=== PATIENT | female | born 1950 | race Caucasian/White ===

== ENCOUNTER 2017-03-17 13:44 | Emergency (ER) | payer MEDICARE ==
[2010-05-11 10:10] VITALS: BMI 36.4
[2017-03-17 15:24] LABS: BASOPHILS 0.3 % (0-2); EOSINOPHILS 1.8 % (0-7); HEMATOCRIT 39.3 % (36.0-48.0); HEMOGLOBIN 13.4 g/dL (12-16); IMMATURE GRANULOCYTES 0.1 % (0-5); LYMPHOCYTES 24.7 % (15-50); MCH 30.8 pg (26.0-34.0); MCHC 34.1 g/dL (31.0-37.0); MCV 90.3 fL (80.0-100.0); MEAN PLATELET VOLUME 11.5 fL (7.4-10.4); MONOCYTES 8.1 % (2-11); PLATELET COUNT 180 10x3/uL (130-400); RBC 4.35 10x6/uL (4.00-5.40); RDW 13.5 % (11.5-14.5); WBC 7.4 10x3/uL (4.8-10.8)
[2017-03-17 15:51] LABS: ALBUMIN 3.6 g/dL (3.4-5.0); ALKALINE PHOSPHATASE 73 U/L (46-116); ALT (SGPT) 37 U/L (10-68); CALC OSMOLALITY 287 mosm/kg (275-300); CALCIUM 9.5 mg/dL (8.5-10.1); CARBON DIOXIDE 25.9 mmol/L (21.0-32.0); CHLORIDE - SERUM 105 mmol/L (98-107); CREATININE - SERUM 1.1 mg/dL (0.6-1.3); GLUCOSE 109 mg/dL (74-106); POTASSIUM - SERUM 3.6 mmol/L (3.5-5.1); PROTEIN - SERUM 7.8 g/dL (6.4-8.2); SODIUM 142 mmol/L (136-145); UREA NITROGEN 24 mg/dL (7-18); eGFR NON AFRICAN AMERICAN 52 mL/min (90-120)
[2017-03-17 15:58] LABS: CHOL - HDL RATIO 5.5 ratio (2.3-4.1); CHOLESTEROL, TOTAL 231 mg/dL (0-200); CKMB 0.8 U/L (0.0-3.6); CREATINE KINASE 67 UL (21-215); HDL CHOLESTEROL 42 mg/dL (32-96); LDL CHOLESTEROL 164 mg/dL (0-100); LDL-HDL RATIO 3.9 ratio (1.5-3.5); MAGNESIUM - SERUM 2.2 mg/dL (1.8-2.4); PRO BNP 161 pg/mL (0-125); TRIGLYCERIDE 126 mg/dL (30-200)
[2017-03-17 15:59] LABS: TROPONIN-I < 0.017 ng/mL (0.000-0.060)
[2017-05-04 09:21] VITALS: BMI 44.7
== END 2017-03-17 16:33 | disposition home or self-care (01) ==
LOC: D.ER 13:44
PROVIDERS: Emergency Medicine
DX: M79.602 Pain in left arm (principal); I44.7 Left bundle-branch block, unspecified

== ENCOUNTER 2017-05-04 09:01 | Outpatient (CLI) | payer MEDICARE ==
[~2017-05-04] VITALS: Ht 170.2 cm; Wt 129.5 kg
--- NOTE | ~2017-05-04 | HEMODYNAMI ---
PATIENT:MINI SHUKLA MEDICAL RECORD: [id number] : 50 LOCATION:DCastroCAT ADMISSION DATE: 05/04/17 Generatedon:05/04/201711:04 Patient name: MINI SHUKLA Patient #: [id number] SSN: D OB: 1950 Date of study: 05/04/2017 Page: Of Hemodynamic Procedure Report Patient Data Patient Demographics Procedure consent was obtained First Name: MINI Gender: Female Last Name: VAZQUEZ : 1950 Middle Initial: D Age: 67 year(s) Patient #: [id number] Race: Unknown Additional ID: [id number] Contact details Address: [address] State: [place] City: [place] Zip code: [address] Admission Admission Data Admission Date: 05/04/2017 Admission Time: 9:01 Procedure Procedure Types Cath Procedure Diagnostic Procedure LHC LHC w/Coronaries FFR/IVUS Intra-Coronary IVUS Initial PCI Procedure Coronary Stent Coronary Stent Initial Miscellaneous Procedures Moderate Sedation up to 30 minutes Procedure Description Procedure Date Procedure Date: 05/04/2017 Procedure Start Time: 10:34 Procedure End Time: 11:03 Procedure Staff Name Function Leonidas Tamez MD Performing Physician Quyen Ansari RT Monitor Esther Rivera RT Scrub Darren Pollock RN Nurse Bunny Deluna RN Geothermal System Installer Procedure Data Cath Procedure Fluoroscopy Diagnostic fluoroscopy Total fluoroscopy Time: 6.3 time: 6.3 min min Diagnostic fluoroscopy Total fluoroscopy dose: dose: 1084 mGy 1084 mGy Contrast Material Contrast Material Type Amount (ml) Isovue 300 114 Entry Location Entry Primary Successful Side Size Upsize Upsize Entry Closure Walker ccessful Closure Location (Fr) 1 (Fr) 2 (Fr) Remarks Device Remarks Radial Right 6 Fr Mechanical artery Short Compression Estimated blood loss: 10 ml Diagnostic catheters Device Type Used For End Catheter Placement DIAGNOSTIC Holliday 110cm 5 LV Angiography Fr catheter ([id number]) DIAGNOSTIC Holliday 110cm 5 Left Coronary Fr catheter ([id number]) Angiography DIAGNOSTIC Holliday 110cm 5 Right Coronary Fr catheter ([id number]) Angiography Procedure Complications No complications Procedure Medications Medication Administration Route Dosage 0.9% NaCl I.V. 100 ml/hr Oxygen NC 2 l/min Heparin Flush Bag added to field 2 bags (1000units/500ml NS) Lidocaine 2% added to field 20 Radial Cocktail added to field 1 syringe (Verapomil 2mg/Nitro 400mcg/Heparin 1500units) Versed I.V. 1 mg Fentanyl I.V. 50 mcg Versed I.V. 1 mg Fentanyl I.V. 50 mcg Radial Cocktail added to field 1 syringe (Verapomil 2mg/Nitro 400mcg/Heparin 1500units) Heparin Bolus I.V. 4000 units Integrilin (Bolus I.V. 11.3 ml 2mg/ml) Integrilin (Bolus wasted 8.7 ml 2mg/ml) Versed I.V. 1 mg Plavix P.O. 600 mg Hemodynamics Rest Heart Rate: 63 (bpm) Snapshots Pre Cath Intra NCS Post Cath Vital Signs Time Heart Resp SPO2 etCO2 NIBP (mmHg) Rhythm Pain Sedation Rate (ipm) (%) (mmHg) Status Level (bpm) 10:30:18 61 27 100 38.6 141/76(114) NSR 0 (11) 10(A) , No pain 10:35:09 63 17 98 37.8 133/73(107) NSR 0 (11) 10(A) , No pain 10:39:58 58 16 94 40.8 121/61(107) NSR 0 (11) 10(A) , No pain 10:44:47 62 14 97 40.8 123/59(94) NSR 0 (11) 10(A) , No pain 10:49:31 69 16 94 40 114/57(83) NSR 0 (11) 10(A) , No pain 10:54:18 66 14 96 37.8 127/62(93) NSR 0 (11) 10(A) , No pain 10:59:09 61 16 96 40.8 119/52(93) NSR 0 (11) 10(A) , No pain Medications Time Medication Route Dose Verified Delivered Reason Note s Effectiveness by by 10:28:36 0.9% NaCl I.V. 100 Darren Darren Per physician ml/hr Lorigan Lorigan RN RN 10:28:48 Oxygen NC 2 l/min Darren Darren Per physician Phill Pollock RN RN 10:28:59 Heparin Flush added 2 bags Darren Darren used for Bag to Phill Pollock procedure (1000units/500ml field RN RN NS) 10:29:12 Lidocaine 2% added 20ml Darren Darren for local to vial Phill Pollock anesthetic field RN RN 10:29:31 Radial Cocktail added 1 Darren Darren for (Verapomil to syringe Phill Pollock vasodilation 2mg/Nitro field RN RN 400mcg/Heparin 1500units) 10:31:49 Versed I.V. 1 mg Darren Darren for sedation Phill Pollock RN RN 10:32:00 Fentanyl I.V. 50 mcg Darren Darren for sedation Phill Pollock RN RN 10:37:32 Versed I.V. 1 mg Darren Darren for sedation Phill Pollock RN RN 10:37:41 Fentanyl I.V. 50 mcg Darren Darren for sedation Phill Pollock RN RN 10:43:20 Radial Cocktail added 1 Darren Leonidas for (Verapomil to syringe Phill Tamez MD vasodilation 2mg/Nitro field RN 400mcg/Heparin 1500units) 10:56:33 Heparin Bolus I.V. 4000 Darren Darren for units Phill Pollock anticoagulation RN RN 10:56:51 Integrilin I.V. 11.3 ml Darren Darren for (Bolus 2mg/ml) Phill Pollock antiplatelet RN RN therapy 10:57:09 Integrilin wasted 8.7 ml Darren Darren to sharp's (Bolus 2mg/ml) Phill Pollock RN RN 10:59:31 Versed I.V. 1 mg Darren Darren for sedation Phill Pollock RN RN 11:02:04 Plavix P.O. 600 mg Darren Darren for Phill Pollock antiplatelet RN RN therapy Procedure Log Time Note 10:07:55 Bunny Deluna RN sent for patient. Start room use. 10:07:56 Time tracking: Regular hours 10:07:59 Plan of Care:Hemodynamics will remain stable., Cardiac rhythm will remain stable., Comfort level will be maintained., Respiratory function will remain adequate., Patient/ family verbilizes understanding of procedure., Procedure tolerated without complication., Recovers from procedure without complications.. 10:19:21 Patient received from Pre/Post Procedure Room to CCL 1 Alert and oriented. Tansferred to table in Supine position. 10:19:22 Warm blankets applied, and graciela hugger turned on for patient comfort. 10:19:22 Correct patient and procedure confirmed by team. 10:19:23 Signed procedure consent form obtained from patient. 10:19:24 ECG and BP/O2 sat monitors applied to patient. 10:19:25 Full Disclosure recording started 10:28:36 0.9% NaCl 100 ml/hr I.V. was administered by Darren Pollock RN; Per physician; 10:28:48 Oxygen 2 l/min NC was administered by Darren Pollock RN; Per physician; 10:28:59 Heparin Flush Bag (1000units/500ml NS) 2 bags added to field was administered by Darren Pollock RN; used for procedure; 10:29:12 Lidocaine 2% 20ml vial added to field was administered by Darren Pollock RN; for local anesthetic; 10:29:17 Vital chart was started 10:29:31 Radial Cocktail (Verapomil 2mg/Nitro 400mcg/Heparin 1500units) 1 syringe added to field was administered by Darren Pollock RN; for vasodilation; 10:30:14 Rhythm: sinus rhythm 10:30:33 H&P Date Dictated: 04/12/2017 Within 30 days and on chart., H&P Addendum completed by physician on day of procedure. (MUST COMPLETE FOR ALL OUTPATIENTS). 10:30:35 Pre-procedure instructions explained to patient. 10:30:35 Pre-op teaching completed and patient verbalized understanding. 10:30:37 Family in patients room. 10:30:39 Patient NPO since Midnight. 10:30:46 Is patient on blood thinner?No 10:30:48 Patient diabetic? No. 10:30:51 Previous problem with sedation/anesthesia? No ? 10:30:52 Snore? Yes 10:30:54 Sleep apnea? No 10:30:55 Deviated septum? No 10:30:56 Opens mouth fully? Yes 10:30:56 Sticks out tongue? Yes 10:30:58 Airway obstruction? No ? 10:31:01 Dentures? Yes OUT 10:31:05 Pre procedure: right dorsailis pedis pulse 2+ Normal; easily identifiable; not easily obliterated 10:31:07 Modified Dk's test Ulnar < 7 seconds 10:31:09 Patient pain scale 0/10 ?. 10:31:14 IV patent on arrival in left hand with 0.9% NaCl at KVO. 10:31:19 Lab results completed and on chart. 10:31:22 Right Radial & Right Groin area was prepped with chlora-prep and draped in sterile fashion 10::23 Alarms reviewed by R. N. 10:31: Sharps counted by scrub and verified by R.N. 10:31:25 Final Timeout: patient, procedure, and site verified with staff and physician. All members of the team are in agreement. 10:31:27 Right Radial site verified by team. 10:31:30 Physical assessment completed. ASA score P 2 - A patient with mild systemic disease as per Leonidas Tamez MD. 10:31:33 Sedation plan: IV Moderate Sedation Medication:Versed, Fentanyl 10:31:49 Versed 1 mg I.V. was administered by Darren Pollock RN; for sedation; 10:32:00 Fentanyl 50 mcg I.V. was administered by Darren Pollock RN; for sedation; 10:33:14 Use device set Radial Dx 10:33:15 ACIST Syringe (82579) opened to sterile field. 10:33:15 Medline Cath Pack ([id number]) opened to sterile field. 10:33:16 Bag Decanter (2002S) opened to sterile field. 10:33:16 SHEATH 6FR Slender ([id number]) opened to sterile field. 10:33:16 DIAGNOSTIC WIRE .035 260cm J wire (360738) opened to sterile field. 10:33:17 ACIST Hand Control (48866) opened to sterile field. 10:33:18 ACIST Manifold (80309) opened to sterile field. 10:33:19 Tegaderm 4 x 4 (1626W) opened to sterile field. 10:33:19 MBrace Wrist Support ([id number]) opened to sterile field. 10:34:30 Procedure started. 10:34:33 Zero performed for pressure channel P1 10:34:40 Local anesthetic to right radial artery with Lidocaine 2% by Leonidas Tamez MD.INITIAL ACCESS ONLY 10:35:15 Baseline sample Acquired. 10:37:32 Versed 1 mg I.V. was administered by Darren Pollock RN; for sedation; 10:37:41 Fentanyl 50 mcg I.V. was administered by Darren Pollock RN; for sedation; 10:43:14 A 6 Fr Short sheath was inserted into the Right Radial artery 10:43:20 Radial Cocktail (Verapomil 2mg/Nitro 400mcg/Heparin 1500units) 1 syringe added to field was administered by Leonidas Tamez MD; for vasodilation; 10:44:25 A DIAGNOSTIC Holliday 110cm 5 Fr catheter (446237) was advanced over the wire and used for LV Angiography. 10:46:07 LV gram done using DOHERTY 10:46:11 Injector settings: Ml/sec: 5, Volume: 15, 10:46:16 EF : 55 % 10:46:25 A DIAGNOSTIC Holliday 110cm 5 Fr catheter (390695) was advanced over the wire and used for Left Coronary Angiography. 10:47:43 Use device set [facility] PCI 10:47:48 GUIDE 6FR XBLAD 3.5 catheter ([id number]) opened to sterile field. 10:47:54 CHOICE PT Extra Support 182cm wire ([id number]) opened to sterile field. 10:48:02 INFLATOR Merit BasixCompak (AP6557) opened to sterile field. 10:48:21 A DIAGNOSTIC Holliday 110cm 5 Fr catheter (224805) was advanced over the wire and used for Right Coronary Angiography. 10:48:34 Catheter removed. 10:48:49 Scio Wilton Eagleye IVUS Catheter (09670F) opened to sterile field. 10:50:33 6 Fr XBLAD 3.5 guide catheter was inserted over the wire 10:51:07 CHOICE PT ES wire advanced. 10:51:57 IVUS catheter advanced over wire. 10:51:59 IVUS pass to LAD lesion performed. 10:54:54 IVUS catheter removed over wire. 10:56:33 Heparin Bolus 4000 units I.V. was administered by Darren Pollock RN; for anticoagulation; 10:56:48 Inflation Number: 1 A INTEGRITY RX 3.5 x 22 stent ([id number]) was prepped and advanced across the Prox LAD. The stent was deployed at 13 SHANNON for 0:08 (min:sec). 10:56:51 Integrilin (Bolus 2mg/ml) 11.3 ml I.V. was administered by Darren Pollock RN; for antiplatelet therapy; 10:57:09 Integrilin (Bolus 2mg/ml) 8.7 ml wasted was administered by Darren Pollock RN; to sharp's; 10:57:34 Inflation number: 2 The stent balloon was then re-inflated across the Prox LAD to 3 SHANNON for 0:13 (min:sec). 10:58:05 Stent catheter was removed intact over wire. 10:58:06 Wire removed. 10:58:06 Guide catheter removed. 10:58:17 Sheath removed intact; hemostasis achieved with Mechanical Compression to the Right Radial artery. 10:58:19 Procedure ended.(Physican Out) 10:58:33 Fluoroscopy time 06.30 minutes. 10:58:36 Fluoroscopy dose: 1084 mGy 10:58:36 Flurop Dose total: 1084 10:58:40 Contrast amount:Isovue 300 114ml. 10:58:41 Sharps counted by scrub and verified by R.N. 10:58:44 TR band inflated with 13cc of air. 10:58:45 Insertion/operative site no bleeding no hematoma. 10:58:51 Post right radial artery:stable, soft, clean and dry 10:58:52 Post Procedure Pulses reassessed and unchanged 10:58:55 Post-procedure physical assessment completed. ASA score P 2 - A patient with mild systemic disease as per Leonidas Tamez MD. 10:58:56 Post procedure rhythm: unchanged. 10:58:58 Estimated blood loss: 10 ml 10:59:00 Post procedure instruction explained to patient.Patient verbalizes understanding. 10:59:00 Patient needs reinforcement of post procedure teaching. 10:59:23 Procedure type changed to Cath procedure, Diagnostic procedure, LHC, LHC w/Coronaries, FFR/IVUS, Intra-Coronary IVUS Initial, PCI procedure, Coronary Stent, Coronary Stent Initial, Miscellaneous Procedures, Moderate Sedation up to 30 minutes 10:59:29 Procedure Complication : No complications 10:59:31 Versed 1 mg I.V. was administered by Darren Pollock RN; for sedation; 10:59:31 See physician's report for complete and final results. 10:59:37 TR BAND Large ([id number]) opened to sterile field. 11:00:29 Procedure and supply charges have been captured, reviewed, submitted and are correct. 11:02:04 Plavix 600 mg P.O. was administered by Darren Pollock RN; for antiplatelet therapy; 11:02:54 Vital chart was stopped 11:02:57 Report given to Pre/Post Procedure Room. 11:03:01 Patient transfered to Pre/Post Procedure Room with Stretcher. 11:03:09 Procedure ended. 11:03:09 Full Disclosure recording stopped 11:03:12 End room use (Document Last) Intervention Summary Intervention Notes Time ActionType Lesion and Equipment Action# Pressure Duration Attributes Used 10:56:48 Place stent Prox LAD INTEGRITY RX 1 13 00:09 3.5 x 22 stent ([id number]) 10:57:34 Reinflate Prox LAD INTEGRITY RX 2 3 00:13 stent 3.5 x 22 balloon stent ([id number]) Device Usage Item Name Manufacture Quantity Catalog Number Hospital Part Current Mini [facility] Lot# / Charge Number Stock Stock Serial# Code ACIST Acist 1 29791 512946 745543 151598 20 Syringe Medical (55161) Systems Inc Medline Cath Cardinal 1 [id number] 782490 79135 412698 5 Pack Hardide Coatings ([id number]) Bag Decanter Microtek 1 2001S 056421 63336 328308 5 () Medical Inc. SHEATH 6FR Terumo 1 [id number] 233181 463585 176419 40 Slender ([id number]) DIAGNOSTIC St Rajiv 1 616342 531223 146994 918814 30 WIRE .035 260cm J wire (422940) ACIST Hand Acist 1 80450 585154 723111 200260 5 Control Medical (75088) Systems Inc ACIST Acist 1 73723 918780 700638 034054 5 Manifold Medical (01405) Systems Inc Tegaderm 4 x 3M 1 1626W 253139 659480 682252 5 4 (1626W) MBrace Wrist Advanced 1 140-0250-00 146378 32904 059754 5 Support Vascular (098762105) Dynamics DIAGNOSTIC Terumo 1 40-0913 571497 716451 401578 5 Holliday 110cm 5 Fr catheter (927222) GUIDE 6FR Cardinal 1 [id number] 588740 655685 151106 10 XBLAD 3.5 Health catheter (41293289) CHOICE PT [place] 1 [id number] 581043 976850 317124 5 Extra Scientific Support 182cm wire ([id number]) INFLATOR Merit 1 VP1359 724313 475738 407594 15 Merit Medical BasixCompak (JY7554) Scio Scio 1 49881C 412087 839052 552107 8 [place] Eagleye IVUS Catheter (10323S) INTEGRITY RX Medtronic 1 [id number] 008277 146619 964128 5 [id number] 3.5 x 22 stent ([id number]) TR BAND Terumo 1 [id number] 343977 992786 403150 40 Large ([id number]) Signature Audit Brimson Stage Time Signature Unsigned Intra-Procedure 05/04/2017 Quyen 11:04:35 AM Counts RT(R) Signatures Monitor : Quyen Signature : Counts RT Date : Time : [address] [place] [address]
[2017-05-04] MEDS ORDERED: EDARBI40 MG PO (09:11)
[2017-05-04] MEDS ORDERED: NEURONTIN 300300 MG PO (09:11)
[2017-05-04] MEDS ORDERED: TEKTURNA300 MG PO (09:12)
[2017-05-04] MEDS ORDERED: NITROQUICK0.4 MG SL (09:12)
[2017-05-04] MEDS ORDERED: TOPROL XL50 MG PO (09:12)
[2017-05-04 09:21] VITALS: BP 123/81; Ht 170.2 cm; Wt 129.5 kg
[2017-05-04 09:34] LABS: BASOPHILS 0.3 % (0-2); EOSINOPHILS 0 % (0-7); HEMOGLOBIN 12.7 g/dL (12-16); IMMATURE GRANULOCYTES 0.3 % (0-5); LYMPHOCYTES 34.9 % (15-50); MCH 30.2 pg (26.0-34.0); MCHC 33.4 g/dL (31.0-37.0); MCV 90.5 fL (80.0-100.0); MEAN PLATELET VOLUME 11.2 fL (7.4-10.4); NEUTROPHILS 56.5 % (40-80); PLATELET COUNT 174 10x3/uL (130-400); RDW 13.5 % (11.5-14.5); WBC 7.2 10x3/uL (4.8-10.8)
[2017-05-04 09:43] LABS: ANION GAP 13.2 mmol/L (8-16); CALCIUM 9.2 mg/dL (8.5-10.1); CREATININE - SERUM 1.2 mg/dL (0.6-1.3); POTASSIUM - SERUM 4.2 mmol/L (3.5-5.1)
[2017-05-04] MEDS ORDERED: PLAVIX75 MG PO (11:22)
[2017-05-04] MEDS ORDERED: BAYER CHEWABLE81 MG PO (11:23)
--- NOTE | 2017-05-04 11:30 | NUR ---
2L NC, NO RESP DISTRESS. RIGHT WRIST TR BAND CDI, NO BLEEDING OR HEMATOMA NOTED. VSS. NO C/O PAIN OR NAUSEA. FAMILY AT BEDSIDE, CALL LIGHT WITHIN REACH.
--- NOTE | 2017-05-04 12:00 | NUR ---
2L NC, NO RESP DISTRESS. RIGHT WRIST TR BAND CDI, NO BLEEDING OR HEMATOMA NOTED. NO C/O NAUSEA OR PAIN. SANDWICH TRAY AND DRINK GIVEN. VSS. WILL CONTINUE TO MONITOR CLOSELY.
--- NOTE | 2017-05-04 14:30 | NUR ---
3CC OF AIR REMOVED FROM TR BAND, NO BLEEDING NOTED.
--- NOTE | 2017-05-04 14:41 | NUR ---
4CC OF AIR REMOVED FROM TR BAND, NO BLEEDING NOTED.
--- NOTE | 2017-05-04 14:55 | NUR ---
LEFT HAND PIV D/C'D WITH CATHETER INTACT, BAND AID TO SITE. 4CC OF AIR REMOVED FROM TR BAND, NO BLEEDING NOTED. UP TO BEDSIDE TO GET DRESSED.
--- NOTE | 2017-05-04 15:05 | NUR ---
AMBULATED TO RESTROOM TO VOID.
--- NOTE | 2017-05-04 15:10 | NUR ---
DISCHARGE INSTRUCTIONS GIVEN, VERBALIZED UNDERSTANDING.
--- NOTE | 2017-05-04 15:20 | NUR ---
TAKEN OUT VIA WHEELCHAIR BY CATH KIT ASSEMBLER. LEFT FACILITY WITH FAMILY AND ALL PERSONAL BELONGINGS.
--- NOTE | 2017-05-10 12:15 | OP ---
PATIENT NAME: MINI SHUKLA MEDICAL RECORD: [id number] :50 LOCATION:D.CAT ADMISSION DATE: SURGEON: AMBERLY COX MD DATE OF OPERATION: 05/04/2017 DATE OF SERVICE: 05/04/2017 PROCEDURES: 1. PTCA stent LAD. 2. Left heart catheterization. 3. Selective coronary angiography. 4. Left ventriculogram. 5. Intravascular ultrasound. INDICATION: Angina and coronary artery disease. PROCEDURE IN DETAIL: After informed consent was obtained and after a detailed explanation of the risks, benefits as well as alternative therapies, the patient elected to proceed with angiogram and angioplasty. The right radial area was prepped and draped in normal sterile fashion. The right radial artery was cannulated via modified Seldinger technique with placement of 6-Danish sheath. All catheters exchanged through this sheath. FINDINGS: The left ventriculogram was performed in standard 30-degree DOHERTY view, reveals good cardiac wall motion throughout all segments. Overall ejection fraction estimated at 60%. SELECTIVE CORONARY ANGIOGRAPHY: 1. Left main is with no significant angiographic disease. 2. Left anterior descending has greater than 70% stenosis confirmed by intravascular ultrasound in the proximal vessel. 3. Left circumflex shows mild irregularities, but no flow-limiting stenosis. 4. Right coronary has mild irregularities, but no flow-limiting stenosis. PTCA STENT OF THE LAD: The stent used is a 3.5 x 22 mm Integrity. Result was 0% residual stenosis. OVERALL IMPRESSION: Successful percutaneous transluminal coronary angioplasty stent of the left anterior descending going from greater than 70% initial stenosis to 0% residual. TRANSINT:[id number] Voice Confirmation ID: [id number] DOCUMENT ID: [id number] AMBERLY COX MD at 1215 CC: [id number] DICTATION DATE: 05/04/17 1101 CEMENT SPRAYER HELPER: 05/04/17 1300 DEP CLI 05/04/[address] [address]
== END 2017-05-04 15:20 | disposition home or self-care (01) ==
LOC: D.CATH 09:01
PROVIDERS: Internal Medicine Interventional Cardiology
DX: I20.9 Angina pectoris, unspecified (principal); R94.31 Abnormal electrocardiogram [ECG] [EKG]; I34.9 Nonrheumatic mitral valve disorder, unspecified; I10 Essential (primary) hypertension; Z01.812 Encounter for preprocedural laboratory examination

== ENCOUNTER 2018-01-15 14:58 | Observation (INO) | payer MEDICARE ==
[~2018-01-15] VITALS: Ht 170.2 cm; Wt 122.7 kg
--- NOTE | ~2018-01-15 | DS ---
PATIENT:MINI SCHMIDT :50 MEDICAL RECORD: [id number] DISCHARGE SUMMARY ADMISSION DATE: 01/15/18 DISCHARGE DATE: 01/16/18 DISCHARGE DIAGNOSES: 1. Bradycardia. 2. Hypertension. 3. Coronary artery disease. HOSPITAL COURSE: Mrs. Schmidt presents with dizziness, found to be quite bradycardic in the 30s. She was on Lopressor 100 mg b.i.d. This was held. Her bradycardia resolved. She was discharged home with increasing her Edarbi to 80 mg, discontinuation of Lopressor. Will follow up for an event monitor as an outpatient. TRANSINT:[id number] Voice Confirmation ID: [id number] DOCUMENT ID: [id number] AMBERLY COX MD at 1642 CC: [id number] DICTATION DATE: 01/16/18 0943 CROSSWORD PUZZLE MAKER: 01/16/18 1355 DIS IN 01/16/18 [id number] [place] [address]
[~2018-01-15 14:58] MED LIST: BAYER CHEWABLE81 MG PO; EDARBI40 MG PO; NEURONTIN 300300 MG PO; NITROQUICK0.4 MG SL; PLAVIX75 MG PO; TEKTURNA300 MG PO; TOPROL XL50 MG PO
[2018-01-15] MEDS ORDERED: HYDROCHLOROTHIA25 MG PO (15:04)
[2018-01-15 15:49] LABS: BASOPHILS 0.3 % (0-2); EOSINOPHILS 0 % (0-7); HEMATOCRIT 36.4 % (36.0-48.0); HEMOGLOBIN 12.5 g/dL (12-16); IMMATURE GRANULOCYTES 0.2 % (0-5); LYMPHOCYTES 21.6 % (15-50); MCH 30.4 pg (26.0-34.0); MCHC 34.3 g/dL (31.0-37.0); MCV 88.6 fL (80.0-100.0); MEAN PLATELET VOLUME 11.6 fL (7.4-10.4); MONOCYTES 7.4 % (2-11); NEUTROPHILS 70.5 % (40-80); PLATELET COUNT 180 10x3/uL (130-400); RBC 4.11 10x6/uL (4.00-5.40); RDW 13.8 % (11.5-14.5); WBC 8.6 10x3/uL (4.8-10.8)
[2018-01-15 16:06] LABS: ALBUMIN 3.5 g/dL (3.4-5.0); ANION GAP 10.7 mmol/L (8-16); BILIRUBIN - TOTAL 0.38 mg/dL (0.2-1.3); CALCIUM 8.8 mg/dL (8.5-10.1); CREATININE - SERUM 1.3 mg/dL (0.6-1.3); POTASSIUM - SERUM 3.7 mmol/L (3.5-5.1); PROTEIN - SERUM 7.5 g/dL (6.4-8.2)
[2018-01-15 16:19] VITALS: BP 135/57
[2018-01-15 16:41] VITALS: BP 143/71
[2018-01-15 17:02] LABS: MAGNESIUM - SERUM 2.2 mg/dL (1.8-2.4)
[2018-01-15 17:06] LABS: TROPONIN-I < 0.017 ng/mL (0.000-0.060)
[2018-01-15 17:41] LABS: APPEARANCE CLEAR (CLEAR); BILIRUBIN NEGATIVE (NEGATIVE); COLOR YELLOW (YELLOW); GLUCOSE NEGATIVE (NEGATIVE); KETONE NEGATIVE (NEGATIVE); NITRITE NEGATIVE (NEGATIVE); PROTEIN NEGATIVE (NEGATIVE); UROBILINOGEN NORMAL (NORMAL)
[2018-01-15 17:42] LABS: BACTERIA MODERATE /hpf (NONE SEEN); EPITHELIAL CELLS 0-5 /hpf (0-5); RED CELLS - URINE 0-5 /hpf (0-5)
[2018-01-15 17:43] LABS: YEAST <1+ /hpf (NONE SEEN)
[2018-01-15 17:46] VITALS: BP 159/60; BMI 42.4
[2018-01-15 20:00] VITALS: BP 136/67
[2018-01-15 23:35] VITALS: BP 133/65
[2018-01-16 04:16] VITALS: BP 136/58
[2018-01-16 07:49] VITALS: BP 132/61
[2018-01-16 08:33] VITALS: Ht 170.2 cm; Wt 122.7 kg
[2018-01-16 11:03] VITALS: BP 124/60
[2018-01-16] MEDS ORDERED: CIPRO500 MG PO (12:44)
== END 2018-01-16 16:02 | disposition home or self-care (01) ==
LOC: D.ER 14:58 → D.M2 14:58 → D.OPS 14:58 → OBSVTIME 16:34 → D.M2 16:34 → D.OPS 16:48 → D.M2 16:48 → EDSTATUS 17:08 → D.M2 01-16 16:02 → D.OPS 01-16 16:02
PROVIDERS: Emergency Medicine
DX: R00.1 Bradycardia, unspecified (principal); I25.10 Atherosclerotic heart disease of native coronary artery without angina pectoris; I10 Essential (primary) hypertension; E11.9 Type 2 diabetes mellitus without complications; N39.0 Urinary tract infection, site not specified

== ENCOUNTER 2018-09-25 17:08 | Inpatient (IN) | payer MEDICARE ==
[~2018-09-25] VITALS: Ht 152.4 cm; Wt 131.1 kg
--- NOTE | ~2018-09-25 | HEMODYNAMI ---
PATIENT:MINI SHUKLA MEDICAL RECORD: [id number] : 50 [facility] ADMISSION DATE: 09/25/18 Generatedon:09/26/201814:36 Patient name: MINI SHUKLA Patient #: [id number] SSN: D OB: 1950 Date of study: 09/26/2018 Page: Of Hemodynamic Procedure Report Patient Data Patient Demographics Procedure consent was obtained First Name: MINI Gender: Female Last Name: VAZQUEZ : 1950 Middle Initial: D Age: 68 year(s) Patient #: [id number] Race: Unknown Additional ID: [id number] Contact details Address: [address] State: [place] City: [place] Zip code: [address] Past Medical History Allergies Allergen Reaction Date Comments Reported Other allergy 09/26/2018 SULFA Admission Admission Data Admission Date: 09/25/2018 Admission Time: 17:08 Room #: D.2124 Height (in.): 60 BSA: 2.18 (m2) Height (cm.): 152.4 BMI: 56.4 (kg/m2) Weight (lbs.): 288.81 Weight (kg.): 131 Lab Results Lab Result Date: 09/26/2018 Lab Result Time: 0:00 Biochemistry Name Units Result Min Max BUN mg/dl 24 --(----)-* 7 18 Creatinine mg/dl 1.3 --(---*)-- 0.6 1.3 CBC Name Units Result Min Max Hematocrit % 31.8 *-(----)-- 42 54 Hemoglobin g/dl 10.8 *-(----)-- 13.5 17.5 Procedure Procedure Types Cath Procedure Diagnostic Procedure PPM/ICD PPM Dual Implant Sedation Charges Moderate Sedation up to 15 minutes Procedure Description Procedure Date Procedure Date: 09/26/2018 Procedure Start Time: 13:59 Procedure End Time: 14:35 Procedure Staff Name Function Clemente Higginbotham MD Performing Physician Harshal Dillon MD Assisting physician Esther Rivera RT Monitor Dylan Guajardo RT Scrub Dixie Khan RN Nurse Procedure Data Cath Procedure Fluoroscopy Diagnostic fluoroscopy Total fluoroscopy Time: 1.5 time: 1.5 min min Diagnostic fluoroscopy Total fluoroscopy dose: dose: 67.34 mGy 67.34 mGy Estimated blood loss: 10 ml Procedure Complications No complications Procedure Medications Medication Administration Route Dosage Lidocaine 1% added to field 20 Versed I.V. 2 mg Fentanyl I.V. 100 mcg Versed I.V. 1 mg Fentanyl I.V. 50 mcg Ancef (1Gm/50ml NS) I.V.P.B 1 g Vancomycin Topical 1 g Irrigation Fentanyl I.V. 50 mcg Versed I.V. 1 mg Hemodynamics Rest BSA: 2.18 (m2) HGB: 10.8 (g/dl) O2 Consumption: Estimated: 174.91 (ml/min) O2 Co nsumption indexed: Estimated:80.23 (ml/min/m) Heart Rate: 37 (bpm) Snapshots Pre Cath Intra NCS Post Cath Vital Signs Time Heart Resp SPO2 etCO2 NIBP (mmHg) Rhythm Pain Sedation Rate (ipm) (%) (mmHg) Status Level (bpm) 13:52:09 36 19 100 0 185/73(159) 3 0 (11) 10(A) degree , No Heart pain Block 13:57:46 34 17 100 0 156/67(125) 3 0 (11) 10(A) degree , No Heart pain Block 14:02:06 45 15 98 0 146/62(117) 3 0 (11) 10(A) degree , No Heart pain Block 14:06:09 36 12 95 0 139/114(126) 3 0 (11) 9(A) degree , No Heart pain Block 14:11:45 32 15 97 0 141/62(109) 3 0 (11) 9(A) degree , No Heart pain Block 14:17:07 61 15 96 0 148/75(135) Paced 0 (11) 9(A) , No pain 14:22:10 65 14 96 0 156/76(120) Paced 0 (11) 9(A) , No pain 14:26:30 60 16 97 0 134/67(124) Paced 0 (11) 10(A) , No pain 14:31:47 60 15 96 0 157/78(120) Paced 0 (11) 10(A) , No pain Medications Time Medication Route Dose Verified Delivered Reason Notes Eff ectiveness by by 13:52:24 Ancef I.V.P.B 1 g Harshal Colin used for dr dillon (1Gm/50ml Janna Khan RN procedure gave NS) verbal order to administer ancef iv due to pt only having a rash with pcn. 13:53:54 Lidocaine added 20ml Harshal Caputo for local 1% to vial Janna Dillon MD anesthetic field 13:54:00 Versed I.V. 2 mg Harshal Colin for Janna Khan RN sedation 13:54:12 Fentanyl I.V. 100 Pentecostal Jbie for marquis Khan RN sedation 14:01:15 Versed I.V. 1 mg Harshal Colin for Janna Khan RN sedation 14:01:19 Fentanyl I.V. 50 Harshal Muhammadie for marquis Khan RN sedation 14:04:34 Vancomycin Topical 1 g Harshal Caputo used for Irrigation Janna Dillon MD procedure 14:05:23 Fentanyl I.V. 50 Pentecostal Pentecostal for marquis Dillon MD sedation 14:13:16 Versed I.V. 1 mg Harshal Colin for Janna Khan RN sedation Procedure Log Time Note 13:31:58 Dixie Khan RN sent for patient. Start room use. 13:31:59 Signed procedure consent form obtained from patient. 13:32:00 Time tracking: Regular hours (M-F 7:00 - 5:00) 13:32:04 Plan of Care:Hemodynamics will remain stable., Cardiac rhythm will remain stable., Comfort level will be maintained., Respiratory function will remain adequate., Patient/ family verbilizes understanding of procedure., Procedure tolerated without complication., Recovers from procedure without complications.. 13:32:20 Use device set JANNA PPM 13:32:23 2-0 Ticron Multipack ([id number]) opened to sterile field. 13:32:23 3-0 Vicryl Single Pack [id number] opened to sterile field. 13:32:24 5-0 Monocryl PS2 [id number] opened to sterile field. 13:32:24 Cautery Tip Bonding Equipment Operator opened to sterile field. 13:32:25 Cautery Pushbutton Pencil opened to sterile field. 13:32:26 Mepilex Dressing ([id number]) opened to sterile field. 13:32:29 Immobilizer Large opened to sterile field. 13:33:41 Medtronic 4074-52 PPM Lead opened to sterile field. 13:33:45 Medtronic 4574-45 PPM Lead opened to sterile field. 13:33:46 Medtronic Advisa MRI PPM Dual Generator [id number] opened to sterile field. 13:37:28 Patient Weight : 288.81 lbs 13:37:32 Patient Height : 60 inches 13:37:55 Patient allergic to Other allergySULFA 13:38:14 Lab Result : BUN 24 mg/dl 13:38:14 Lab Result : Creatinine 1.3 mg/dl 13:38:14 Lab Result : Hematocrit 31.8 % 13:38:14 Lab Result : Hemoglobin 10.8 g/dl 13:40:23 Patient received from Med II to CCL 3 Alert and oriented. Tansferred to table in Supine position. 13:40:24 Warm blankets applied, and graciela hugger turned on for patient comfort. 13:40:24 Correct patient and procedure confirmed by team. 13:40:25 ECG and BP/O2 sat monitors applied to patient. 13:49:38 Vital chart was started 13:49:39 Baseline sample Acquired. 13:49:43 Rhythm: sinus bradycardia 13:49:44 Full Disclosure recording started 13:49:44 Pre-procedure instructions explained to patient. 13:49:45 Pre-op teaching completed and patient verbalized understanding. 13:49:46 Family in patients room. 13:49:47 Patient NPO since Midnight. 13:49:50 Is patient on blood thinner?No 13:49:51 Patient diabetic? Yes. 13:49:52 If diabetic: On Metformin? No 13:49:55 Patient not . Patient is over age 55. 13:49:59 Previous problem with sedation/anesthesia? No ? 13:49:59 Snore? Yes 13:50:00 Sleep apnea? Yes 13:50:01 Deviated septum? No 13:50:02 Opens mouth fully? Yes 13:50:03 Sticks out tongue? Yes 13:50:06 Dentures? No ? 13:50:10 Patient pain scale 0/10 ?. 13:50:16 IV patent on arrival in right hand with 0.9% NaCl at O. 13:50:19 Lab results completed and on chart. 13:50:23 Left chest area was prepped with chlora-prep and draped in sterile fashion 13:50:24 Alarms reviewed by R. N. 13:50:24 Sharps counted by scrub and verified by R.N. 13:50:27 --------ALL STOP TIME OUT------ 13:50:27 Final Timeout: patient, procedure, and site verified with staff and physician. All members of the team are in agreement. 13:50:32 Left chest site verified by team. 13:50:35 Maximum allowable Isovue 300 dose 300ml. Physician notified. (300ml for normal creatinines. For patients with creatinine of 1.7 or higher multiply weight(kg) x 5 divided by creatinine.) 13:50:47 Fire Safety Assessment: A--An alcohol-based skin anteseptic being used preoperatively., C--Open oxygen or nitrous oxide is being used. 13:50:49 Physical assessment completed. ASA score P 2 - A patient with mild systemic disease as per Clemente Higginbotham MD. 13:50:52 Sedation plan: IV Moderate Sedation Medication:Versed, Fentanyl 13:51:04 Medtronic branch sales and service representative JASVIR ROOT present for procedure. 13:52:24 Ancef (1Gm/50ml NS) 1 g I.V.P.B was administered by Dixie Khan RN; used for procedure; dr dillon gave verbal order to administer ancef iv due to pt only having a rash with pcn. 13:53:54 Lidocaine 1% 20ml vial added to field was administered by Harshal Dillon MD; for local anesthetic; 13:54:00 Versed 2 mg I.V. was administered by Dixie Khan RN; for sedation; 13:54:12 Fentanyl 100 mcg I.V. was administered by Dixie Khan RN; for sedation; 13:57:28 Pre sharps counted by scrub and verified by RN: Sutures: 7; Sponges: 5; Stick needles: 1; Skin needles: 1; Blade: 1; Cautery: 1 13:57:45 Grounding pad site Left thigh. 13:57:46 Grounding pad site free from injury. 13:58:26 Procedure started. 13:59:13 Lidocaine 1% was administered to left subclavicular area by Clemente Higginbotham MD . 14:01:15 Versed 1 mg I.V. was administered by Dixie Khan RN; for sedation; 14::19 Fentanyl 50 mcg I.V. was administered by Dixie Khan RN; for sedation; 14:01:59 Incision made to left subclavicular area. 14:04:34 Vancomycin Irrigation 1 g Topical was administered by Harshal Dillon MD; used for procedure; 14:04:40 Generator pocket made/opened. 14:04:44 Left subclavian vein accessed with 7Fr Peel Away Sheath. 14:05:23 Fentanyl 50 mcg I.V. was administered by Harshal Dillon MD; for sedation; 14::59 Ventricular lead inserted and advanced. 14:06:03 Left subclavian vein accessed with 7Fr Peel Away Sheath. 14:06:05 Atrial lead inserted and advanced. 14:07:27 Ventricular lead positioned. 14:08:41 Ventricular lead tested. 14:09:19 Atrial lead positioned. 14:09:55 Atrial lead tested. 14:10:37 Peel-a-way sheath was split and removed. 14:10:37 Peel-a-way sheath was split and removed. 14:11:46 PPM Dual was attached to lead(s) and inserted into pocket. 14:11:55 PPM Dual was inserted subcutaneously to left chest. 14:12:12 Atrial lead attachment was completed with 2-0 ticron. 14:12:20 Ventricular lead attachment was completed with 2-0 ticron. 14:13:16 Versed 1 mg I.V. was administered by Dixie Khan RN; for sedation; 14:14:52 Generator was sutured in place with 2-0 ticron. 14:15:27 Device pocket was irrigated with Ancef. 14:15:30 Subcutaneous closure was completed with 3-0 vicryl. 14:17:40 Skin closure was completed with 5-0 monocryl. 14:17:44 Parameters-- Generator: Mode: DDDR. Lower Rate: 60bpm. Upper Rate: 120bpm. 14:18:19 Parameters--Atrial P/R Wave: 4.4mV. Current: .1mA; Threshold: 9.6V; Impedence: 500OHMS. 14:19:13 Parameters--Ventricular P/R Wave: 13.5mV. Current: .1mA; Threshold: .3V; Impedence: 1000OHMS. 14:19:22 Lt Chest incision was dressed with Mepilex dressing. 14:19:36 Procedure ended.(Physican Out) 14:21:00 Post sharps counted by scrub and verified by RN: Sutures: 7; Sponges: 5; Stick needles: 1; Skin needles: 1; Blade: 1; Cautery: 1 14:21:08 Fluoroscopy time 01.50 minutes. 14:21:16 Fluoroscopy dose: 67.34 mGy 14:21:16 Flurop Dose total: 67.34 14:21:26 Post-procedure physical assessment completed. ASA score P 2 - A patient with mild systemic disease as per Clemente Higginbotham MD. 14:21:41 Post procedure rhythm: paced 14:21:44 Estimated blood loss: 10 ml 14:21:47 Post procedure instruction explained to patient.Patient verbalizes understanding. 14:21:54 Patient needs reinforcement of post procedure teaching. 14:22:13 Procedure type changed to Cath procedure, Diagnostic procedure, PPM/ICD, PPM Dual Implant, Sedation Charges, Moderate Sedation up to 15 minutes 14:22:27 Procedure and supply charges have been captured, reviewed, submitted and are correct. 14:22:31 Procedure Complication : No complications 14:35:01 Vital chart was stopped 14:35:02 See physician's report for complete and final results. 14:35:04 Report given to [facility]. 14:35:07 Patient transfered to [facility] with Bed. 14:35:12 Procedure ended. 14:35:12 Full Disclosure recording stopped 14:35:16 End room use (Document Last) Device Usage Item Name Manufacture Quantity Catalog Hospital Part Current Minimal Lot# / Serial# Number Charge Number Stock Stock Code 2-0 Ticron Ethicon 3 [id number] [id number] 95466 [id number] 5 Multipack ([id number]) 3-0 Vicryl Ethicon 1 [id number] 965752 986385 106416 5 Single Pack [id number] 5-0 Monocryl Ethicon 1 Y495G 934273 789314 339322 5 PS2 Y495G Cautery Tip Microtek 1 [id number] 862154 242802 399626 5 Bonding Equipment Operator [employer] Inc[employer] Cautery Microtek 1 [id number] 01558 611010 5 Pushbutton Medical Inc. Pencil Mepilex Cardinal 1 [id number] 896101 250980 318349 5 [facility] ([id number]) Immobilizer Cardinal 1 66-86567 236552 663682 771401 5 Large Health Medtronic Medtronic 1 4074-52 180160 253389 956348 5 [id number] EXP: 52 PPM 03-24-2018 Lead Medtronic Medtronic 1 4574-45 693611 259674 860411 5 [id number] EXP: 45745 PPM 04-04-2018 Lead Medtronic Medtronic 1 [id number] 624767 503003 472160 5 [id number] Advisa MRI EXP:12-25-2019 PPM Dual Generator [id number] Signature Audit Morning View Stage Time Signature Unsigned Intra-Procedure 09/26/2018 Esther Rivera 2:36:00 PM RT(R) Signatures Monitor : Esther Rivera Signature : RT Date : Time : [address] [address]
[~2018-09-25 17:08] MED LIST changes: +CIPRO500 MG PO; +HYDROCHLOROTHIA25 MG PO
--- NOTE | 2018-09-25 17:25 | NUR ---
NEW PATIENT DIRECT ADMIT FROM DR COX OFFICE FOR BRADYCARDIA.PATIENT IS ALERT, ORIENTED X4. PATIENT IS STABLE . PATIENT DENIES ANY NEEDS OR PAIN. NEW ORDERS RECEIVED. ADMISSION HISTORY AND ASSESSEMENT COMPLETED. TELEMETRY PLACED. SURGICAL, BLOOD AND ANESTHESIA CONSENT OBTAINED. AT BEDSIDE. PATIENT ORIENTED TO ROOM AND CALL LIGHT. WILL CONTINUE WITH PLAN OF CARE.
[2018-09-25 17:50] VITALS: BP 126/43
[2018-09-25 19:34] LABS: ANION GAP 15.4 mmol/L (8-16); CALCIUM 8.3 mg/dL (8.5-10.1); CARBON DIOXIDE 23.5 mmol/L (21.0-32.0); CREATININE - SERUM 1.3 mg/dL (0.6-1.3); POTASSIUM - SERUM 3.9 mmol/L (3.5-5.1)
--- NOTE | 2018-09-25 19:39 | NUR ---
RECIEVED UP IN BED ON TELEPHONE. ALERT AND ORIENTED X4. TELEMETRY IN PLACE. EDEMA TO LOWER EXTREMITIES AND STATES SHE STOPPED TAKING B/P AND DIURETIC MEDICATION. EDUCATION ON THE NEED FOR TAKING MEDICATIONS PERSCRIBED. DENIES ANY OTHER NEEDS AT THIS TIME.
[2018-09-25 20:35] LABS: BASOPHILS 0.6 % (0-2); EOSINOPHILS 0.8 % (0-7); HEMATOCRIT 31.8 % (36.0-48.0); HEMOGLOBIN 10.8 g/dL (12-16); IMMATURE GRANULOCYTES 0.2 % (0-5); LYMPHOCYTES 25.8 % (15-50); MCV 88.3 fL (80.0-100.0); MEAN PLATELET VOLUME 11.9 fL (7.4-10.4); MONOCYTES 8.1 % (2-11); NEUTROPHILS 64.5 % (40-80); PLATELET COUNT 148 10x3/uL (130-400); RDW 13.9 % (11.5-14.5); WBC 8.6 10x3/uL (4.8-10.8)
[2018-09-25 22:04] VITALS: BP 149/50
[2018-09-26 00:04] VITALS: BP 167/51
[2018-09-26 05:55] VITALS: BP 176/50
[2018-09-26 07:55] VITALS: BP 143/62
--- NOTE | 2018-09-26 08:40 | NUR ---
ASSESSMENT COMPLETED. ALERT AND ORIENTED. DENIES ANY NEEDS. TELEMTERY SHOW SB 36 WITH 3RD DEGREE BLOCK. UP AB GILMAR. FOR PACEMAKED TODAY. WILL MONITOR
--- NOTE | 2018-09-26 10:20 | NUR ---
I have reviewed this patient and I concur with the Shift Assessment completed by the Licensed Practical Nurse today this shift.
--- NOTE | 2018-09-26 11:44 | NUR ---
PT LYING QUIETLY. DENIES ANY NEEDS. AWAITING PACEMAKER IMPLANT
[2018-09-26 11:53] VITALS: BP 146/66
--- NOTE | 2018-09-26 13:59 | NUR ---
TO FIBERGLASS TECHNICIAN PER BED FOR PACER IMPLANT
--- NOTE | 2018-09-26 15:00 | NUR ---
BACK FROM [place] DRY PRESS HELPER. V/S STABLE. DRSG TO LEFT SHOULDER AT PACER SITE.TELEMERTY SHOWS PACED RHYTHM AT 64. SLING TO LEFT ARM.. NO BLEEDING OR SWELLING NOTED.RIGHT FA IV.
[2018-09-26 15:41] VITALS: BP 143/56
--- NOTE | 2018-09-26 18:43 | NUR ---
DENIES ANY NEEDS. DRSG TO RIGHT SHOULDER DRY AND INTACT. TELEMERTY SHOWS PACED RHYTHM
--- NOTE | 2018-09-26 19:50 | NUR ---
ASSESSMENT COMPLETE, PT A&O. RESPERATIONS EVEN ON RA. IV TO RIGHT ARM SL. SITE CLEAN AND DRY. DRSG TO LEFT UPPER CHEST FROM PACEMAKER INSERTION. NO SWELLING OR BLEEDING NOTED. LEFT ARM IN SLING. UP WITH ASSIST TO BR AND BACK TO BED. PT DENIES PAIN OR OTHER NEEDS. BED LOW, CL IN REACH.
[2018-09-26 20:00] VITALS: BP 166/67
--- NOTE | 2018-09-26 22:59 | NUR ---
UP WITH ASSIST TO BR.
[2018-09-27] VITALS: BP 160/65
--- NOTE | 2018-09-27 02:42 | NUR ---
RESTING WITH EYES CLOSED, RESPERATIONS EVEN, NO S/S DISTRESS NOTED.
[2018-09-27 04:00] VITALS: BP 150/60
[2018-09-27 08:15] VITALS: BP 129/59
--- NOTE | 2018-09-27 09:49 | MORECARE ---
CASE MANAGEMENT DISCHARGE SUMMARY PATIENT: MINI SHUKLA UNIT: [id number] ADM DATE: 09/25/18 AGE: 68 : 50 SEX: F ROOM/BED: D.1064 AUTHOR: MORALES ORDOÑEZ PHYSICIAN: REFERRING PHYSICIAN: AMBERLY COX MD DATE OF SERVICE: 09/27/18 Discharge Plan Patient Name: MINI SHUKLA Facility: [facility]:[place] : 1950 Planned Disposition: Home Anticipated Discharge Date: 09/27/18 Discharge Date: Expected LOS: 2 Initial Reviewer: [email or web address] Initial Review Date: 09/27/2018 Generated: 09/27/18 10:49 am Patient Name: MINI SHUKLA Page 53848 at 0949 All edits/amendments must be made on the electronic document DICTATION DATE: 09/27/18947 EFFICIENCY MINER BLASTING: TEVIN 09/27/18947 RPT#: [id number] DC DATE: STATUS: ADM IN [facility] [address] [place] [address] END OF REPORT
--- NOTE | 2018-09-27 09:57 | MORECARE ---
CASE MANAGEMENT DISCHARGE SUMMARY PATIENT: MINI SHUKLA UNIT: [id number] ADM DATE: 09/25/18 AGE: 68 : 50 SEX: F ROOM/BED: D.2124 AUTHOR: MORALES ORDOÑEZ PHYSICIAN: REFERRING PHYSICIAN: AMBERLY COX MD DATE OF SERVICE: 09/27/18 Discharge Plan Patient Name: MINI SHUKLA Facility: [facility]:[place] : 1950 Planned Disposition: Home Anticipated Discharge Date: 09/27/18 Discharge Date: Expected LOS: 2 Initial Reviewer: [email or web address] Initial Review Date: 09/27/2018 Generated: 09/27/18 10:57 am DCPIA - Discharge Planning Initial Assessment Updated by [email or web address]: Sp Leos on 09/27/18 9:49 am * Is the patient Alert and Oriented? Yes * How many steps to enter\exit or inside your home? NONE * PCP DR. GALAVIZ, [facility], [place] * Pharmacy [facility], [place] * Preadmission Environment Home with Family * ADLs Independent * Equipment CPAP * Other Equipment [facility] - DOES NOT WANT TO USE THEM AGAIN, THEY PROVIDED CPAP * List name and contact numbers for known caregivers / representatives who currently or will assist patient after discharge: GRZEGORZ SHUKLA, SPOUSE, * Verbal permission to speak to the caregivers and representatives has been obtained from the patient. N/A * Community resources currently utilized None * Please name any agencies selected above. NONE * Additional services required to return to the preadmission environment? No * Can the patient safely return to the preadmission environment? Yes * Has this patient been hospitalized within the prior 30 days at any hospital? No Last DP export: 09/27/18 8:49 am Patient Name: MINI SHUKLA Page 24628 at 0957 All edits/amendments must be made on the electronic document DICTATION DATE: 09/27/18955 SECRETARY SPECIALIST: TEVIN 09/27/18955 RPT#: [id number] DC DATE: STATUS: ADM IN [facility] [address] [place] [address] END OF REPORT
[2018-09-27 10:34] VITALS: Ht 152.4 cm; Wt 131.1 kg
[2018-09-27] MEDS ORDERED: PROTONIX40 MG PO (10:37)
[2018-09-27] MEDS ORDERED: NIFEDIPINE 30 MG PO (10:39)
[2018-09-27] MEDS ORDERED: NORVASC10 MG PO (10:42)
--- NOTE | 2018-09-27 13:00 | NUR ---
PATIENT IS STABLE AND VSS. ORDERS RECIEVED FOR DC. DC INSTRUCTIONS GIVEN BOTH VERBALLY AND WRIITEN TO PATIENT AND SPOUSE. PATIENT VERBALIZED UNDERSTANDING AND INSTRUCTIONS SIGNED. TELEMETRY AND IV DC. PATIENT TRANSPORTED TO FRONT DOOR TO PRIVATE VEHICLE DRIVEN BY PATIENTS
--- NOTE | 2018-09-27 13:17 | OP ---
PATIENT NAME: MINI SCHMIDT MEDICAL RECORD: [id number] :[birth year] LOCATION:D.[facility] D.2124 ADMISSION DATE:09/25/18 SURGEON: NOAH PARNELL MD DATE OF OPERATION: 09/26/2018 PROCEDURE: Lead portion of permanent pacemaker placement. INDICATION: Type 2 AV block as well as complete heart block. SURGEON: Harshal Russo MD DESCRIPTION OF PROCEDURE: After left subclavian was cannulated via modified Seldinger technique via Dr. Russo, first, under fluoroscopic guidance, the RV lead was placed in the RV apex without difficulty. After adequate P waves and thresholds were obtained, again under fluoroscopic guidance, I placed the right atrial lead in the right atrial appendage without difficulty. After adequate P waves and thresholds were obtained, I then attached the leads to appropriate poles of the generator and pocket was closed via Dr. Russo. IMPRESSION: Successful lead portion of permanent pacemaker placement on Mini Schmidt. ESTIMATED BLOOD LOSS: Minimal. COMPLICATIONS: None. DISPOSITION: To the floor, stable. TRANSINT:[id number] Voice Confirmation ID: [id number] DOCUMENT ID: [id number] NOAH PARNELL MD at 1317 CC: [id number] DICTATION DATE: 09/26/18 1419 ENGRAVER LETTER: 09/26/18 1737 ADM IN [place] [id number]
--- NOTE | 2018-09-27 17:18 | MORECARE ---
CASE MANAGEMENT DISCHARGE SUMMARY PATIENT: MINI SHUKLA UNIT: [id number] ADM DATE: 09/25/18 AGE: 68 : 50 SEX: F ROOM/BED: D.7498 AUTHOR: SMITA,DOC PHYSICIAN: REFERRING PHYSICIAN: AMBERLY COX MD DATE OF SERVICE: 09/27/18 Discharge Plan Patient Name: MINI SHUKLA Facility: [facility]:[place] : 1950 Planned Disposition: Home Anticipated Discharge Date: 09/27/18 Discharge Date: 09/27/2018 Expected LOS: 2 Initial Reviewer: [email or web address] Initial Review Date: 09/27/2018 Generated: 09/27/18 6:18 pm Comments DCP- Discharge Planning Updated by [email or web address]: Sp Leos on 09/27/18 8:[address] Patient Name: MINI SHUKLA Admission Status: Urgent Accout number: [id number] Admission Date: 09-25-2018 : 1950 Admission Diagnosis: Attending: BRITTANY COX Current LOS: 2 Anticipated DC Date: 09-27-2018 Planned Disposition: Home Primary Insurance: [facility] [employer] Discharge Planning Comments: CM MET WITH PT IN ROOM TO DISCUSS DISCHARGE PLANNING AND NEEDS. PT REPORTS LIVING AT HOME INDEPENDENTLY WITH HER SPOUSE. PT HAS CPAP FROM [facility] BUT WOULD PREFER NOT TO USE THEM AGAIN; PT HAS NO MEDICAL EQUIPMENT PROVIDER PREFERENCE. PT HAS NO OUTSIDE SERVICES ASSISTING IN THE HOME. CM DISCUSSED AVAILABILITY OF HOME HEALTH, REHAB SERVICES AND MEDICAL EQUIPMENT. PT DENIES DISCHARGE NEEDS, REPORTS HER SPOUSE WILL PICK HER UP FOR DISCHARGE HOME. ADJUNCT TEACHER NURSE NOTIFIED. Services Engineer: Sp Leos DCPIA - Discharge Planning Initial Assessment Updated by [email or web address]: Sp Leos on 09/27/18 9:49 am * Is the patient Alert and Oriented? Yes * How many steps to enter\exit or inside your home? NONE * PCP DR. GALAVIZ, [facility], [place] * Pharmacy [facility], [place] * Preadmission Environment Home with Family * ADLs Independent * Equipment CPAP * Other Equipment [facility] - DOES NOT WANT TO USE THEM AGAIN, THEY PROVIDED CPAP * List name and contact numbers for known caregivers / representatives who currently or will assist patient after discharge: GRZEGORZ SHUKLA, SPOUSE, * Verbal permission to speak to the caregivers and representatives has been obtained from the patient. N/A * Community resources currently utilized None * Please name any agencies selected above. NONE * Additional services required to return to the preadmission environment? No * Can the patient safely return to the preadmission environment? Yes * Has this patient been hospitalized within the prior 30 days at any hospital? No Last DP export: 09/27/18 8:57 am Patient Name: MINI SHUKLA Page [phone] at 1718 All edits/amendments must be made on the electronic document DICTATION DATE: 09/27/181716 FISHERIES TECHNICAL OFFICER: TEVIN 09/27/181716 RPT#: [id number] DC DATE:09/27/18 STATUS: DIS IN [facility] [address] [place] [address] END OF REPORT
== END 2018-09-27 14:09 | disposition home or self-care (01) | DRG 244 ==
LOC: D.M2 17:08
PROVIDERS: Internal Medicine Interventional Cardiology; ADMIT Internal Medicine Interventional Cardiology; ATTEND Internal Medicine Interventional Cardiology
PROC: 02H63JZ Insertion of Pacemaker Lead into Right Atrium, Percutaneous Approach (ICD-10-PCS; 2018-09-26)
PROC: 02HK3JZ Insertion of Pacemaker Lead into Right Ventricle, Percutaneous Approach (ICD-10-PCS; 2018-09-26)
PROC: 0JH606Z Insertion of Pacemaker, Dual Chamber into Chest Subcutaneous Tissue and Fascia, Open Approach (ICD-10-PCS; principal; 2018-09-26 12:46)
DX: I44.2 Atrioventricular block, complete (principal); R00.1 Bradycardia, unspecified; I25.10 Atherosclerotic heart disease of native coronary artery without angina pectoris; I10 Essential (primary) hypertension; E11.9 Type 2 diabetes mellitus without complications; E66.01 Morbid (severe) obesity due to excess calories

== ENCOUNTER 2018-10-03 12:09 | Outpatient (CLI) | payer MEDICARE ==
[~2018-10-03] VITALS: Ht 170.2 cm; Wt 125.0 kg
--- NOTE | ~2018-10-03 | OP ---
PATIENT NAME: MINI SCHMIDT MEDICAL RECORD: [id number] :50 LOCATION:[facility] ADMISSION DATE: SURGEON: NOAH PARNELL MD DATE OF OPERATION: 10/03/2018 PROCEDURE: Lead revision. INDICATION: Dislodgment of atrial lead. The patient with organized atrial activity, in need AV synchrony. DESCRIPTION OF PROCEDURE: After the previous pocket was opened via Dr. Russo, we replaced the right atrial lead in the right atrial appendage without difficulty. After adequate P waves and thresholds were obtained, the leads were reattached to appropriate poles of the generator and the pocket was closed via Dr. Russo. IMPRESSION: Successful lead revision on Mini Schmidt. COMPLICATIONS: None. TRANSINT:[id number] Voice Confirmation ID: [id number] DOCUMENT ID: [id number] NOAH PARNELL MD CC: [id number] DICTATION DATE: 10/03/18 1642 STORE OPERATIONS MANAGER: 10/03/181920 DEP CLI 10/03/18 [facility] [address] [place] [address]
[~2018-10-03 12:09] MED LIST changes: +NIFEDIPINE 30 MG PO; +NORVASC10 MG PO; +PROTONIX40 MG PO
[2018-10-03] MEDS ORDERED: LASIX40 MG PO (12:33)
[2018-10-03] MEDS ORDERED: METOPROLOL TART50 MG PO (12:34)
[2018-10-03] MEDS ORDERED: POTASSIUM CHLOR8 ME1 PO (12:35)
[2018-10-03 12:46] VITALS: BP 164/78; Ht 170.2 cm; Wt 125.0 kg
[2018-10-03 13:54] LABS: ANION GAP 14.7 mmol/L (8-16); CALCIUM 8.9 mg/dL (8.5-10.1); CARBON DIOXIDE 23.1 mmol/L (21.0-32.0); CREATININE - SERUM 1.2 mg/dL (0.6-1.3); POTASSIUM - SERUM 3.8 mmol/L (3.5-5.1)
[2018-10-03 13:56] LABS: INR 1.1 (0.85-1.17); PROTIME 13.7 SECONDS (11.6-15.0)
[2018-10-03 13:57] LABS: APTT 29.3 SECONDS (22.8-39.4)
[2018-10-03 14:53] LABS: HEMATOCRIT 36.8 % (36.0-48.0); HEMOGLOBIN 12.5 g/dL (12-16); MCH 29.6 pg (26.0-34.0); MCV 87.2 fL (80.0-100.0); MEAN PLATELET VOLUME 12.1 fL (7.4-10.4); RBC 4.22 10x6/uL (4.00-5.40); RDW 13.7 % (11.5-14.5); WBC 6.7 10x3/uL (4.8-10.8)
--- NOTE | 2018-10-03 17:49 | NUR ---
1645 DR PARNELL HAS ROUNDED AND SPOKEN WITH PT'S . DR PARNELL STATES TO NURSE PT DOES NOT NEED CHEST X RAY POST PROCEDURE AND TO CANCEL THIS ORDER. 1715 DRESSING TO LEFT UPPER CHEST IS CDI. PT IS ALERT AND DENIES ANY C/O CHEST PAIN. TOLERATING PO FLUIDS WITH NO NAUSEA. VSS. PACED RHYTHM, AT BEDSIDE. 1730 HAVE ATTEMPTED TO RESITE IV TO COMPLETE VANCOMYCIN INFUSION WITHOUT SUCCESS X [address] COX. PT IS ALERT, DENIES ANY C/O. VSS. SANDWICH SERVED. [address] COX, REPORTED VANCOMYCIN INFUSION INCOMPLETE DUE TO IV INFILTRATED, AND APPROX 40 CC REMAINS IN BAG. DR COX STATES OK TO LEAVE IV OUT AND NO FURTHER MEDICATIONS NEEDED AT THIS TIME.
--- NOTE | 2018-10-03 18:04 | NUR ---
PT HAS TOLERATED SANDWICH WITH NO C/O NAUSEA. DRESSING CDI, PACED RHYTHM, DENIES ANY C/O CHEST DISCOMFORT.
[2018-10-03] MEDS ORDERED: HYDROCODON-ACE1 EA10 PO (18:24)
--- NOTE | 2018-10-03 19:09 | NUR ---
1840 PT SITTING UP IN BED,WATCHING TV. DRESSING TO LEFT UPPER CHEST IS CDI, PT IN PACED RHYTHM AT 60, DENIES ANY C/O CHEST PAIN. ASSISTED PT UP TO CHAIR AND ASSISTED PT WITH DRESSING FOR DC TO HOME. LEFT ARM IN SLING. 185 PT HAS AMBULATED TO THE BATHROOM AND VOIDED QS. DC INSTRUCTIONS REVIEWED WITH PT WHO VERBALIZES UNDERSTANDING. WRITTEN COPIES PROVIDED. MEDCOUNSELOR SHEETS FOR NEW MEDICATION [facility] PROVIDED. 1899 PT'S IS HERE TO PICK HER UP. DRESSING REMAINS CDI TO LEFT UPPER CHEST, LEFT ARM IN SLING, RADIAL PULSES PALPABLE, FINGERS WARM AND CAP REFILL IS BRISK. PT DENIES ANY N/V DEFICIT TO LEFT ARM. DC INSTRUCTIONS REVIEWED WITH PT'S . STATES PT HAS AN APPOINTMENT NEXT WEEK ALREADY SCHEDULED WITH DR COX. PT IS ALERT AND DENIES ANY C/O UPON DC. PT ESCORTED TO PRIVATE AUTO VIA WC BY NURSE WITH DRIVING HER HOME. PT HAS ALL PERSONAL BELONGINGS AND DC INSTRUCTIONS AT TIME OF DISCHARGE.
--- NOTE | 2018-10-05 16:09 | OP ---
PATIENT NAME: MINI SHUKLA MEDICAL RECORD: [id number] :50 LOCATION:[facility] ADMISSION DATE: SURGEON: HARSHAL SALDIVAR MD DATE OF OPERATION: 10/03/2018 PREOPERATIVE DIAGNOSES: 1. Displaced atrial lead. 2. Sick sinus syndrome. POSTOPERATIVE DIAGNOSES: 1. Displaced atrial lead. 2. Sick sinus syndrome. PROCEDURES: 1. Atrial lead revision. 2. Fluoroscopic interpretation. SURGEON: Harshal Saldivar MD CO-SURGEON: Clemente Camilo MD REPORT OF OPERATION: The patient's left chest was prepped and draped in sterile fashion. A total of 10 cc of 1% lidocaine with epinephrine was infused into the surrounding tissues. The previous incision was reopened using sharp dissection and we dissected down into the subcutaneous pocket. The pacemaker was eviscerated through the wound. We then released the atrial lead and took it off of the pacemaker. At this point, using fluoroscopic guidance, Dr. Camilo repositioned the lead appropriately in the atrium. The lead was noted to be functioning appropriately, so was reinserted into the pacemaker and sutured down with #0 Ti-Cron. The pacemaker was then placed into the subcutaneous pouch and sutured to the pectoral fascia using a single interrupted #0 Ti-Cron. The wound was irrigated out with antibiotic solution. The subcutaneous tissues were reapproximated with interrupted 3-0 Vicryl and the skin was closed with running subcutaneous 5-0 Monocryl. COMPLICATIONS: None. CONDITION: Stable. ANESTHESIA: Local MAC. BLOOD LOSS: Minimal. TRANSINT:[id number] Voice Confirmation ID: [id number] DOCUMENT ID: [id number] HARSHAL SALDIVAR MD at 1609 CC: [id number] DICTATION DATE: 10/03/18 1647 [employer] S[employer] HE[employer] SPECIALIST: 10/03/18 1924 DEP CLI 10/03/18 [facility] [address] [place] [address]
== END 2018-10-03 19:00 | disposition home or self-care (01) ==
LOC: D.CATH 12:09
PROVIDERS: ATTEND Internal Medicine Interventional Cardiology
DX: T82.120A Displacement of cardiac electrode, initial encounter (principal); I49.5 Sick sinus syndrome; Z01.812 Encounter for preprocedural laboratory examination

== ENCOUNTER → 2019-11-06 09:54 | Outpatient (CLI) | payer MEDICARE ==
[2018-10-03 12:46] VITALS: BMI 43.2
[~2019-11-06 09:54] MED LIST changes: +HYDROCODON-ACE1 EA10 PO; +LASIX40 MG PO; +METOPROLOL TART50 MG PO; +POTASSIUM CHLOR8 ME1 PO
== END | disposition home or self-care (01) ==
LOC: D.HCCARDIO 09:54
PROVIDERS: ATTEND Internal Medicine Cardiovascular Disease
DX: I25.10 Atherosclerotic heart disease of native coronary artery without angina pectoris (principal)

== ENCOUNTER 2020-01-11 22:07 | Emergency (ER) | payer MEDICARE ==
[~2020-01-11] VITALS: Ht 172.7 cm; Wt 119.1 kg
[2020-01-11 22:29] VITALS: Ht 172.7 cm; Wt 119.1 kg
[2020-01-11] MEDS ORDERED: NORVASC5 MG PO (22:35)
[2020-01-11 23:03] LABS: BASOPHILS 0.1 % (0-2); EOSINOPHILS 0 % (0-7); HEMATOCRIT 41.3 % (36.0-48.0); HEMOGLOBIN 13.9 g/dL (12-16); IMMATURE GRANULOCYTES 0.5 % (0-5); MCH 30.3 pg (26.0-34.0); MCHC 33.7 g/dL (31.0-37.0); MEAN PLATELET VOLUME 10.7 fL (7.4-10.4); MONOCYTES 5.8 % (2-11); NEUTROPHILS 84.6 % (40-80); PLATELET COUNT 192 10x3/uL (130-400); RBC 4.59 10x6/uL (4.00-5.40); RDW 13.1 % (11.5-14.5); WBC 16.9 10x3/uL (4.8-10.8)
[2020-01-11 23:09] LABS: CALC OSMOLALITY 277 mosm/kg (275-300); CARBON DIOXIDE 24.2 mmol/L (21.0-32.0); CHLORIDE - SERUM 99 mmol/L (98-107); CREATININE - SERUM 1.7 mg/dL (0.6-1.3); POTASSIUM - SERUM 3.8 mmol/L (3.5-5.1); SODIUM 136 mmol/L (136-145); UREA NITROGEN 21 mg/dL (7-18); eGFR NON AFRICAN AMERICAN 32 mL/min (90-120)
[2020-01-11 23:11] LABS: GLUCOSE 145 mg/dL (74-106)
[2020-01-11 23:26] LABS: ALBUMIN 3.8 g/dL (3.4-5.0); ALKALINE PHOSPHATASE 89 U/L (30-120); ALT (SGPT) 25 U/L (10-68); AMYLASE - SERUM 34 U/L (25-115); LIPASE 65 U/L (73-393); PROTEIN - SERUM 8.2 g/dL (6.4-8.2); TROPONIN-I < 0.017 ng/mL (0.000-0.060)
[2020-01-11 23:58] LABS: BILIRUBIN NEGATIVE (NEGATIVE); GLUCOSE NEGATIVE (NEGATIVE); KETONE NEGATIVE (NEGATIVE); NITRITE NEGATIVE (NEGATIVE); UROBILINOGEN NORMAL (NORMAL)
[2020-01-12 05:55] VITALS: BP 150/64
== END 2020-01-12 05:39 | disposition other institution (70) ==
LOC: D.ER 22:07
PROVIDERS: Family Medicine
DX: N13.9 Obstructive and reflux uropathy, unspecified (principal); N17.9 Acute kidney failure, unspecified; E11.9 Type 2 diabetes mellitus without complications; I10 Essential (primary) hypertension; Z95.0 Presence of cardiac pacemaker; Z95.5 Presence of coronary angioplasty implant and graft; I25.10 Atherosclerotic heart disease of native coronary artery without angina pectoris; K21.9 Gastro-esophageal reflux disease without esophagitis; R11.2 Nausea with vomiting, unspecified

== ENCOUNTER 2020-09-11 16:39 | Emergency (ER) | payer MEDICARE ==
[~2020-09-11] VITALS: Ht 172.7 cm; Wt 120.9 kg
[~2020-09-11 16:39] MED LIST changes: +NORVASC5 MG PO
[2020-09-11 16:46] VITALS: Ht 172.7 cm; Wt 120.9 kg
[2020-09-11 17:22] LABS: BASOPHILS 0.6 % (0-2); EOSINOPHILS 0 % (0-7); HEMATOCRIT 40.6 % (36.0-48.0); HEMOGLOBIN 13.3 g/dL (12-16); IMMATURE GRANULOCYTES 0.1 % (0-5); LYMPHOCYTE ABS# 2.59 10x3/uL (1.18-3.74); LYMPHOCYTES 31.6 % (15-50); MCH 29.5 pg (26.0-34.0); MCHC 32.8 g/dL (31.0-37.0); MEAN PLATELET VOLUME 11.6 fL (7.4-10.4); NEUTROPHILS 58.7 % (40-80); PLATELET COUNT 206 10x3/uL (130-400); RBC 4.51 10x6/uL (4.00-5.40); RDW 13.7 % (11.5-14.5); WBC 8.2 10x3/uL (4.8-10.8)
[2020-09-11 17:27] LABS: BILIRUBIN NEGATIVE (NEGATIVE); KETONE NEGATIVE (NEGATIVE); NITRITE NEGATIVE (NEGATIVE); UROBILINOGEN NORMAL mg/dL (< 2)
[2020-09-11 17:28] LABS: BACTERIA FEW HPF (NONE SEEN); SQUAMOUS EPITHELIAL 0-5 HPF (0-4); WHITE CELLS - URINE 4 HPF (0-4)
[2020-09-11 17:36] LABS: CALC OSMOLALITY 276 mosm/kg (275-300); CARBON DIOXIDE 27.9 mmol/L (21.0-32.0); CHLORIDE - SERUM 103 mmol/L (98-107); CREATININE - SERUM 1.2 mg/dL (0.6-1.3); GLUCOSE 96 mg/dL (74-106); POTASSIUM - SERUM 3.7 mmol/L (3.5-5.1); SODIUM 138 mmol/L (136-145); UREA NITROGEN 15 mg/dL (7-18); eGFR NON AFRICAN AMERICAN 47 mL/min (90-120)
[2020-09-11 17:55] LABS: ALBUMIN 3.9 g/dL (3.4-5.0); ALKALINE PHOSPHATASE 90 U/L (30-120); ALT (SGPT) 23 U/L (10-68); BILIRUBIN - TOTAL 0.53 mg/dL (0.2-1.3); CKMB 0.8 U/L (0.0-3.6); CREATINE KINASE 65 UL (21-215); TROPONIN-I < 0.017 ng/mL (0.000-0.060)
[2020-09-11] MEDS ORDERED: MACROBID100 MG PO (18:40)
[2020-09-11] MEDS ORDERED: CEPHALEXIN500 M1 PO (18:40)
[2020-09-11 20:54] VITALS: BP 153/57
== END 2020-09-11 20:56 | disposition home or self-care (01) ==
LOC: D.ER 16:39
PROVIDERS: Family Medicine
DX: N39.0 Urinary tract infection, site not specified (principal); R42 Dizziness and giddiness; R11.2 Nausea with vomiting, unspecified; I10 Essential (primary) hypertension; K21.9 Gastro-esophageal reflux disease without esophagitis